=== PATIENT | male | born 1970 | race Caucasian/White ===

== ENCOUNTER 2022-05-18 14:19 | Emergency (ER) | payer BC ==
[~2022-05-18] VITALS: Ht 185.4 cm; Wt 143.2 kg
[2022-05-18] MEDS ORDERED: TRAZ-189 PO (14:40)
[2022-05-18] MEDS ORDERED: LISI40TA4 (14:40)
[2022-05-18] MEDS ORDERED: LATU80TA2 PO (14:40)
[2022-05-18] MEDS ORDERED: POTA1TAB23 (14:40)
[2022-05-18] MEDS ORDERED: TIZA10TA (14:40)
[2022-05-18] MEDS ORDERED: METO1TAB7 (14:40)
[2022-05-18] MEDS ORDERED: LIDO5OIN19 (14:40)
[2022-05-18] MEDS ORDERED: AMLO1TAB25 (14:40)
[2022-05-18] MEDS ORDERED: DICL1GEL3 (14:40)
[2022-05-18] MEDS ORDERED: GABA-282 (14:40)
[2022-05-18] MEDS ORDERED: CIPR7.5D5 AS (16:32)
[2022-05-18] MEDS ORDERED: AMOX500C PO (16:32)
[2022-05-18 16:39] VITALS: BP 132/80
== END 2022-05-18 16:40 | disposition home or self-care (01) ==
LOC: M ED 14:19
DX: H60.92 Unspecified otitis externa, left ear (principal); H66.92 Otitis media, unspecified, left ear; I10 Essential (primary) hypertension; F32.A Depression, unspecified; F43.10 Post-traumatic stress disorder, unspecified; F17.220 Nicotine dependence, chewing tobacco, uncomplicated; Z79.899 Other long term (current) drug therapy; Z88.8 Allergy status to other drugs, medicaments and biological substances; Z86.16 Personal history of COVID-19

== ENCOUNTER → 2022-06-05 | Outpatient (CLI) | payer OTHER ==
[~2022-06-05] MED LIST: AMLO1TAB25; AMOX500C PO; CIPR7.5D5 AS; DICL1GEL3; GABA-282; LATU80TA2 PO; LIDO5OIN19; LISI40TA4; METO1TAB7; POTA1TAB23; TIZA10TA; TRAZ-189 PO
== END ==
LOC: M RAD 07:26
DX: M51.36 Other intervertebral disc degeneration, lumbar region (principal); M51.26 Other intervertebral disc displacement, lumbar region; M51.46 Schmorl's nodes, lumbar region; M47.816 Spondylosis without myelopathy or radiculopathy, lumbar region

== ENCOUNTER 2023-01-01 16:46 | Emergency (ER) | payer OTHER ==
[~2023-01-01] VITALS: Ht 182.9 cm; Wt 136.4 kg
[2023-01-01 16:46] VITALS: BP 139/90
[2023-01-02] MEDS ORDERED: CHLO125TA (09:48)
[2023-01-02] MEDS ORDERED: QUET100T2 PO (09:48)
[2023-01-02] MEDS ORDERED: FAMO20TA PO (09:48)
[2023-01-02] MEDS ORDERED: DOXE150C PO (09:48)
[2023-01-02] MEDS ORDERED: MECL1TAB31 PO (15:57)
== END 2023-01-01 19:18 | disposition left against medical advice (07) ==
LOC: M ED 16:46
DX: Z53.21 Procedure and treatment not carried out due to patient leaving prior to being seen by health care provider (principal)

== ENCOUNTER 2023-01-02 09:31 | Emergency (ER) | payer OTHER ==
[~2023-01-02] VITALS: Ht 182.9 cm; Wt 136.4 kg
[2023-01-02] MEDS ORDERED: CHLO125TA (09:48)
[2023-01-02] MEDS ORDERED: DOXE150C PO (09:48)
[2023-01-02] MEDS ORDERED: QUET100T2 PO (09:48)
[2023-01-02] MEDS ORDERED: FAMO20TA PO (09:48)
[2023-01-02] MEDS ORDERED: NS 1,000 ML IV ONE (13:15)
[2023-01-02] MEDS ORDERED: MECLIZINE 25 MG TABLET PO ONE ×2 (13:15→15:40)
[2023-01-02 14:14] LABS: BASO # 0.1 10^3/uL (0.0-0.2); BASO % 0.7 % (0.0-1.0); EOS # 0.2 10^3/uL (0.0-0.5); EOS % 2.3 % (0.0-3.0); HEMATOCRIT 47.8 % (42.0-52.0); HEMOGLOBIN 16.4 g/dl (13.5-17.5); LYMPH # 2.5 10^3/uL (1.5-5.0); MEAN CORPUSCULAR HGB CONC 34.3 g/dl (32.0-36.5); MEAN CORPUSCULAR VOLUME 87.5 fl (80.0-96.0); MONO # 0.7 10^3/uL (0.0-0.8); MONO % 7.7 % (2.0-8.0); NEUTROPHILS # 6.1 10^3/uL (1.5-8.5); NEUTROPHILS % 62.9 % (36.0-66.0); PLATELET COUNT, AUTOMATED 300 10^3/uL (150-450); RED BLOOD COUNT 5.46 10^6/uL (4.30-6.10); WHITE BLOOD COUNT 9.6 10^3/uL (4.0-10.0)
[2023-01-02 14:34] LABS: CK-MB VALUE MASS < 1.0 NG/ML (<3.6)
[2023-01-02 14:37] LABS: ALBUMIN 4.5 G/DL (3.2-5.2); ALKALINE PHOSPHATASE 97 U/L (46-116); ALT/SGPT 41 U/L (7.0-40); AST/SGOT < 8 U/L (<34); BILIRUBIN,TOTAL 0.4 MG/DL (0.3-1.2); BLOOD UREA NITROGEN 11 MG/DL (9-23); CALCIUM LEVEL 10.1 MG/DL (8.5-10.1); CARBON DIOXIDE LEVEL 33 MMOL/L (20-31); CHLORIDE LEVEL 103 MMOL/L (98-107); CPK CREATINE PHOSPHOKINASE 72 U/L (46-171); CREATININE FOR GFR 1.24 MG/DL (0.70-1.30); GLOMERULAR FILTRATION RATE > 60.0 (>56); GLUCOSE, FASTING 96 MG/DL (60-100); MB/CK RELATIVE INDEX 1.38 (< OR =4); POTASSIUM SERUM 3.5 MMOL/L (3.5-5.1); SODIUM LEVEL 143 MMOL/L (136-145); TOTAL PROTEIN 7.6 G/DL (5.7-8.2)
[2023-01-02 14:39] LABS: FREE THYROXINE INDEX 2.8 % (1.4-3.8); T UPTAKE 28.2 % (22.5-37.0)
[2023-01-02 14:40] LABS: THYROID STIMULATING HORMONE 3.143 uIU/ML (0.55-4.78)
[2023-01-02 15:50] VITALS: BP 141/83
[2023-01-02] MEDS ORDERED: MECL1TAB31 PO (15:57)
== END 2023-01-02 16:15 | disposition home or self-care (01) ==
LOC: M ED 09:31
DX: H93.12 Tinnitus, left ear (principal); R42 Dizziness and giddiness; Z98.890 Other specified postprocedural states; I10 Essential (primary) hypertension; Z79.899 Other long term (current) drug therapy; Z88.6 Allergy status to analgesic agent

== ENCOUNTER 2023-05-16 08:13 | Day surgery (SDC) | payer OTHER ==
[~2023-05-16] VITALS: Ht 182.9 cm; Wt 144.1 kg
[~2023-05-16 08:13] MED LIST changes: -AMLO1TAB25; +AMLO1TAB25 PO; +CHLO125TA PO; +DOXE150C PO; +DOXE50CA PO; +FAMO20TA PO; -GABA-282; +GABA-282 PO; +LIDOCAINE 2% 100MG/5ML SDV (FOR ANES.) As Ordered ONE; -LISI40TA4; +LISI40TA4 PO; +MECL1TAB31 PO; +METH-1102 PO; -METO1TAB7; +METO1TAB7 PO; +NS 1,000 ML IV ONE; -POTA1TAB23; +POTA1TAB23 PO; +QUET100T2 PO; +QUET1TAB17 PO; -TIZA10TA; +TIZA10TA PO; +propofoL 200 MG/20 ML VIAL As Ordered ONE
[2023-05-16 10:39] VITALS: TEMP 98.4
[2023-05-16 11:03] VITALS: BP 124/78; O2SAT 97
== END 2023-05-16 11:01 | disposition home or self-care (01) ==
LOC: M OPP 08:13
PROVIDERS: ATTEND Surgery
DX: Z12.11 Encounter for screening for malignant neoplasm of colon (principal); D12.2 Benign neoplasm of ascending colon; K64.9 Unspecified hemorrhoids; K57.30 Diverticulosis of large intestine without perforation or abscess without bleeding; Z79.891 Long term (current) use of opiate analgesic; Z79.899 Other long term (current) drug therapy; Z88.6 Allergy status to analgesic agent

== ENCOUNTER → 2023-08-29 | Outpatient (CLI) | payer OTHER ==
[~2023-08-29] MED LIST changes: +DICL100G10; -DICL1GEL3; -LIDOCAINE 2% 100MG/5ML SDV (FOR ANES.) As Ordered ONE; +MECL-209 PO; -MECL1TAB31 PO; -NS 1,000 ML IV ONE; -propofoL 200 MG/20 ML VIAL As Ordered ONE
== END ==
LOC: M RAD 07:12
PROVIDERS: ATTEND Nurse Practitioner Family
DX: H92.09 Otalgia, unspecified ear (principal); R42 Dizziness and giddiness; H74.92 Unspecified disorder of left middle ear and mastoid

== ENCOUNTER 2024-01-05 18:25 | Emergency (ER) | payer BC, OTHER ==
[~2024-01-05] VITALS: Ht 182.9 cm; Wt 145.7 kg
[2024-01-05] MEDS: PERCOCET 5MG/325MG TAB PO ONE (20:24)
[2024-01-05] MEDS ORDERED: PERC5TAB12 PO (21:57)
[2024-01-05 22:00] VITALS: BP 130/77; TEMP 98
[2024-01-05] MEDS: OXYCODONE/APAP 5MG/325MG(HOME DOSE PACK) PO ONE (22:28)
[2024-01-05 22:30] VITALS: O2SAT 97
== END 2024-01-05 22:15 | disposition home or self-care (01) ==
LOC: M ED 18:25 → EDBD 18:25 → M ED 22:15
DX: S92.321A Displaced fracture of second metatarsal bone, right foot, initial encounter for closed fracture (principal); W10.8XXA Fall (on) (from) other stairs and steps, initial encounter; K21.9 Gastro-esophageal reflux disease without esophagitis; G40.909 Epilepsy, unspecified, not intractable, without status epilepticus; G47.33 Obstructive sleep apnea (adult) (pediatric); I10 Essential (primary) hypertension; F17.200 Nicotine dependence, unspecified, uncomplicated; Z88.6 Allergy status to analgesic agent; Y92.009 Unspecified place in unspecified non-institutional (private) residence as the place of occurrence of the external cause; Y93.89 Activity, other specified; Y99.9 Unspecified external cause status; Z79.811 Long term (current) use of aromatase inhibitors; Z79.891 Long term (current) use of opiate analgesic; Z79.899 Other long term (current) drug therapy

== ENCOUNTER → 2024-07-03 | Outpatient (CLI) | payer OTHER ==
[~2024-07-03] MED LIST changes: +PERC5TAB12 PO
== END ==
LOC: M PLAIMG 08:59
PROVIDERS: ATTEND Pain Medicine Interventional Pain Medicine
DX: M54.16 Radiculopathy, lumbar region (principal); M47.816 Spondylosis without myelopathy or radiculopathy, lumbar region; M51.36 Other intervertebral disc degeneration, lumbar region

== ENCOUNTER 2025-10-14 10:34 | Emergency (ER) | payer OTHER ==
[~2025-10-14] VITALS: Ht 185.4 cm; Wt 113.6 kg
[~2025-10-14 10:34] MED LIST changes: +GABA-1172 PO; -GABA-282 PO; +LISI40TA10 PO; -LISI40TA4 PO
[2025-10-14 10:36] VITALS: BP 132/86; TEMP 96.7; O2SAT 97
[2025-10-14 12:04] LABS: KETONE, URINE AUTO RFX NEGATIVE (NEGATIVE); LEUKOCYTE ESTERASE UR AUTO RFX NEGATIVE (NEGATIVE); MUCUS, URINE RFX SMALL (NEGATIVE); NITRITE, URINE AUTO RFX NEGATIVE (NEGATIVE); RBC, URINE AUTO RFX 1 /HPF (0-3); SQUAM EPITHELIAL CELL UR AURFX 0 /HPF (0-6); WBC, URINE AUTO RFX 2 /HPF (0-3)
[2025-10-14] MEDS ORDERED: LEVO1TAB39 PO (12:26)
[2025-10-14 14:07] LABS: GC DNA AMPLIFICATION NEGATIVE (NEGATIVE)
== END 2025-10-14 12:35 | disposition home or self-care (01) ==
LOC: M ED 10:34
DX: N45.1 Epididymitis (principal); I10 Essential (primary) hypertension; R56.9 Unspecified convulsions; K21.9 Gastro-esophageal reflux disease without esophagitis; F17.200 Nicotine dependence, unspecified, uncomplicated; Z79.899 Other long term (current) drug therapy; Z88.6 Allergy status to analgesic agent